=== PATIENT | female | born 1975 | race Caucasian/White ===

== ENCOUNTER 2024-05-21 16:20 | Emergency (ER) | payer OTHER, SELFPAY ==
[2024-05-21 16:35] VITALS: BP 155/118
[2024-05-21 16:49] LABS: % Basophils 1.2 % (0-2); % Eosinophils 0.6 % (0-6); % Immature Granulocytes 0.2 % (0-0.5); % Lymphocytes 37.1 % (20.5-51.1); % Monocytes 8.2 % (1.7-9.3); % Neutrophils 52.7 % (42.2-75.2); Absolute Basophils 0.1 10^3/uL (0-0.2); Absolute Lymphocytes 1.9 10^3/uL (1.2-3.4); Absolute Monocytes 0.4 10^3/uL (0.1-0.6); Absolute Neutrophils 2.6 10^3/uL (1.4-6.5); Hematocrit 38.9 % (37.0-47.0); Hemoglobin 13.5 g/dL (12.0-16.0); Mean Corp Hgb Conc. 34.7 g/dL (33.0-37.0); Mean Corpuscular Hgb 29.4 pg (27.0-31.0); Mean Corpuscular Volume 84.7 fL (81.0-99.0); Mean Platelet Volume 10.4 fL (7.4-10.4); Nucleated Red Blood Cells % 0 %; Platelet Count 266 10^3/uL (130-400); Red Blood Cell Count 4.59 10^6/uL (4.20-5.40); Red Cell Dist. Width 12.1 % (11.5-14.5)
[2024-05-21 17:02] LABS: ALT (SGPT) 15 U/L (0-35); AST (SGOT) 25 U/L (14-36); Albumin 5.2 g/dl (3.5-5.0); Alkaline Phosphatase 62 U/L (38-126); Blood Urea Nitrogen 16 mg/dl (7-17); Calcium 9.8 mg/dl (8.4-10.2); Carbon Dioxide 26 mmol/L (22-30); Chloride 102 mmol/L (98-107); Glucose 90 mg/dl (70-99); Potassium 3.9 mmol/L (3.5-5.1); Sodium 141 mmol/L (135-145); Total Bilirubin 0.5 mg/dl (0.2-1.3); eGFR > 60.00
[2024-05-21 18:33] VITALS: BP 157/98
[2024-05-21 18:34] VITALS: BP 157/98
[2024-05-21 18:42] VITALS: BMI 23.2
[2024-05-21 19:00] VITALS: BP 158/90
--- NOTE | 2024-05-21 19:46 | ED.GENMED ---
History of Present Illness
General
Chief Complaint: Blood Pressure Problem
Source: patient
Exam Limitations: none
Time Seen by Provider: 05/21/24 18:46
Nursing documentation reviewed up to this point in time: agreed with
History of Present Illness
History of Present Illness:
48-year-old female with history hx of anxiety, takes Effexor 160 mg daily, presents with headache, and 'my blood pressure was high last night' and mild numbness right side of face. She was here last evening for this but left due to lengthy wait. She
had pain behind the right eye last night when here but this has subsided. She slept well during the night. Has had frontal headache today, was 8/10, spoke with her Psychiatrist and was ordered Xanax 0.5 mg which she took at 3 p.m. and now headache
is 1/10. She denies change in vision, n/v.
She states someone from here called her today to check on her and suggested she come back for evaluation since she was not seen last night.
In further conversation she states she has been really stressed with her , a lot of arguing and she has been asking him to leave and he finally did last night to go to an extended stay hotel. She denies him abusing her, they just haven't been
getting along. She has 3 children ages 14 and twin 11 yo's. Her girlfriend is supportive and is staying with her children during this visit. She has no close family contacts. She states she feels much better with him out of the house.
Past History
Past History
ED Past Medical History: Hypercholesterolemia, Psychiatric and Other (back problems for which she sees Dr. Yates, IBS)
ED Past Surgical History:
Social History
Tobacco: Non-smoker
Alcohol: Occasional
Drug: None
Personal:
Living: with family
Review of Systems
Review of Systems
Allergies reviewed?: Yes
All Other Systems: ROS reviewed and negative except as documented in HPI and ROS
Constitutional: Reports fatigue; Denies fever
Respiratory: Denies trouble breathing
Cardiac: Denies chest pain or palpitations
Phy Exam
Physical Exam
Physical Exam:
GENERAL: No acute distress. A&Ox3.
CONSTITUTIONAL: Afebrile.
EYES: PERRL, conjunctivae normal
ENMT: moist mucus membranes, Pharynx nl
RESPIRATORY: Regular respirations, nonlabored, lungs clear.
CARDIOVASCULAR: Regular rate and rhythm, no murmurs, no rubs.
GI: Soft, nontender, normal BS
MUSCULOSKELETAL: Moves with ease. Well perfused.
SKIN: Warm, dry, pink
PSYCH: Normal mood and affect. Well kept, interactive and appropriate
NEUROLOGIC: Awake, alert and oriented. No focal neurological deficits
Course
Orders/Labs/Results
Orders:
Orders
05/21/24 16:42
CBC/With Diff [Complete Blood Count/With Diff] Urgent
Comprehensive Metabolic Panel Urgent
05/21/24 20:04
Electrocardiogram (*1) Urgent
Reason for Study: Fatigue / Weakness
EKG- Treatment ONCE
Abnormal Lab Results
05/21/24
16:42
Albumin 5.2 H g/dl
(3.5-5.0)
05/21/24 16:42
05/21/24 16:42
Vital Signs
Initial and Last Documented VS:
Initial Vital Signs
Temp Pulse Resp BP Pulse Ox
98.2 F 75 16 155/118 98
05/21/24 16:35 05/21/24 16:35 05/21/24 16:35 05/21/24 16:35 05/21/24 16:35
Last Documented Vital Signs
Temp Pulse Resp BP Pulse Ox
98.2 F 72 18 156/101 100
05/21/24 16:35 05/21/24 20:47 05/21/24 20:00 05/21/24 20:47 05/21/24 20:00
MDM/Problems Addressed
Differential Diagnosis Includes:
stress h/a, stress and anxiety.
MDM/Problems Addressed:
48-year-old female with history hx of anxiety, takes Effexor 160 mg daily, presents with headache, and 'my blood pressure was high last night' and mild numbness right side of face. She was here last evening for this but left due to lengthy wait. She
had pain behind the right eye last night when here but this has subsided. She slept well during the night. Has had frontal headache today, was 8/10, spoke with her Psychiatrist and was ordered Xanax 0.5 mg which she took at 3 p.m. and now headache
is 1/10. She denies change in vision, n/v.
She states someone from here called her today to check on her and suggested she come back for evaluation since she was not seen last night.
In further conversation she states she has been really stressed with her , a lot of arguing and she has been asking him to leave and he finally did last night to go to an extended stay hotel. She denies him abusing her, they just haven't been
getting along. She has 3 children ages 14 and twin 11 yo's. Her girlfriend is supportive and is staying with her children during this visit. She has no close family contacts. She states she feels much better with him out of the house.
No neuro deficits. No indication for head CT.
BP improving, no sign end organ damage, labs normal
EKG NSR
Hx and exam consistent with stress headache which she states is much improved.
*Critical Care Note
Total Time (30-74mins, 75-104mins- exclusive of procedures): Not Applicable
ED Attending Note
-
Portions of this chart may have been created with voice recognition software.� Occasional wrong word or��sound alike� substitutions may have occurred due to the inherent limitations of voice recognition software.
Discharge Plan
Departure
Patient Disposition: Home (Routine Discharge)
Date of Disposition: 05/21/24
Time of Disposition: 20:39
Patient with high blood pressure during this ER visit?: Yes
Condition: Good
Discharge Problem:
Stress headache, High blood pressure
Instructions: High Blood Pressure (DC), Tension Headache (DC), Stress
Prescriptions:
No Action
cetirizine 10 MG tablet
10 mg PO DAILY
venlafaxine [Effexor XR] 150 MG capsule,extended release 24hr
150 mg PO DAILY
lamotrigine [Lamictal XR] 50 MG tablet extended release 24hr
50 mg PO DAILY
multivitamin with folic acid [Tab-A-Gaby] 1 TABLET tablet
1 tab PO DAILY
pantoprazole 40 MG tablet,delayed release (DR/EC)
40 mg PO DAILY Qty: 10 0RF
sucralfate 1 GRAM tablet
1 g PO ACHS Qty: 40 0RF
Referrals:
Your, Doctor [Other] - As needed
NONE,* [Family Provider] -
Activity Restrictions/Additional Instructions:
As we discussed, your workup here today shows nothing worrisome.
Due to your family situation you are most likely having stress headaches, anxiety.
Now that you have alleviated some of the stress temporarily, your blood pressure should improve.
Have your blood pressure checked in the next 2 days to be sure it has normalized. Your last blood pressure was 158/90, normal blood pressure should be 120/70
Tylenol as needed for headache
Interventions
Interventions:
*Risk Screen - Suicide Last Done: 05/21/24 16:35
*General Assessment Last Done: 05/21/24 16:35
*Neglect/Abuse Screening Last Done: 05/21/24 16:35
ED- Fall Risk Assessment Last Done: 05/21/24 18:35
*ED COVID-19 Vaccine History Last Done: 05/21/24 18:35
*Nursing Disposition Last Done: 05/21/24 21:00
ED- Cardiac Assessment Last Done: 05/21/24 18:35
ED- Neurological Assessment Last Done: 05/21/24 18:35
ED- Pulmonary Assessment Last Done: 05/21/24 18:35
Discharge Date and Time
Discharge Date/Time: 05/21/24 21:01
Print Language: URDU
[2024-05-21 20:02] VITALS: BP 151/102
[2024-05-21 20:47] VITALS: BP 156/101
== END 2024-05-21 21:01 | disposition home or self-care (01) ==
LOC: EMR 16:20
PROVIDERS: Emergency Medicine; EMERGENCY PHYSICIAN Emergency Medicine
DX: G44.209 Tension-type headache, unspecified, not intractable (principal); R53.83 Other fatigue; R20.0 Anesthesia of skin; R03.0 Elevated blood-pressure reading, without diagnosis of hypertension; F41.9 Anxiety disorder, unspecified; Z63.0 Problems in relationship with spouse or partner; Z73.3 Stress, not elsewhere classified; E78.00 Pure hypercholesterolemia, unspecified; K58.9 Irritable bowel syndrome, unspecified; Z79.899 Other long term (current) drug therapy; Z88.2 Allergy status to sulfonamides; Z88.8 Allergy status to other drugs, medicaments and biological substances; Z91.048 Other nonmedicinal substance allergy status
CPT/HCPCS: 99284; 80053; 85025; 93005

== ENCOUNTER → 2024-08-11 09:40 | Outpatient (REF) | payer OTHER, SELFPAY | LOC: HWWDC 09:40 | PROVIDERS: ATTENDING PHYSICIAN Student in an Organized Health Care Education/Training Program; FAMILY PHYSICIAN Family Medicine | DX: Z12.31 Encounter for screening mammogram for malignant neoplasm of breast (principal) | CPT/HCPCS: 77063; 77067 ==

== ENCOUNTER 2024-09-03 22:03 | Emergency (ER) | payer OTHER, SELFPAY ==
[2024-09-03 22:05] VITALS: BP 145/94
--- NOTE | 2024-09-03 22:56 | ED.GENMED ---
History of Present Illness
<Missy Martel MD, Resident - Last Filed: 09/04/24 00:50>
General
Chief Complaint: Musculo-Skeletal Complaint
Source: patient
Exam Limitations: none
Time Seen by Provider: 09/03/24 22:09
History of Present Illness
History of Present Illness:
48yo F with PMH anxiety who presents from home to ED after mechanical fall and L foot injury. Coming down 1 stair in garage, she tripped over shoes that she couldn't see with the lights out. She rolled her foot and is now reporting pain in L side of
L foot. She has not been able to bear weight on it, her drove her to ED. She landed on her L buttocks, did not hit her head, no loss of consciousness. Otherwise in her usual state of health with no complaints. She took 2 advil prior to
arrival in ED.
Past History
<Missy Martel MD, Resident - Last Filed: 09/04/24 00:50>
Past History
ED Past Medical History: Hypercholesterolemia, Psychiatric and Other (back problems for which she sees Dr. Yates, IBS)
ED Past Surgical History:
Patient has exhibited threatening behavior?: No
Social History
Tobacco: Non-smoker
Alcohol: Occasional
Drug: None
Personal:
Living: with family
Employment: Employed ([employer], works from home)
Family History
Family History: Other (noncontributory)
Review of Systems
<Missy Martel MD, Resident - Last Filed: 09/04/24 00:50>
Review of Systems
Allergies reviewed?: Yes
Constitutional: Reports no symptoms
EENT: Reports no symptoms
Respiratory: Reports no symptoms; Denies cough or trouble breathing
Cardiac: Reports no symptoms; Denies chest pain, palpitations or syncope
ABD/GI: Reports no symptoms; Denies abdominal pain, nausea, vomiting, diarrhea, constipated, bloody stools or black stools
: Reports no symptoms; Denies dysuria or difficulty voiding
Musculoskeletal: Reports other (see HPI)
Skin: Reports no symptoms
Neurological: Reports no symptoms; Denies dizzy, headache, weakness or numbness
Endocrine: Reports no symptoms
Hematologic/Lymphatic: Reports no symptoms
Psychiatric: Reports no symptoms
Phy Exam
<Missy Martel MD, Resident - Last Filed: 09/04/24 00:50>
Physical Exam
Physical Exam:
L can filling and closing machine tender to palpation laterally; no lacerations, abrasions, ecchymosis, edema. R foot nontender.
5/5 strength bilateral lower extremities; dorsiflexion/plantar flexion of L foot slightly diminished 2/2 pain.
Well perfused, normal capillary refill distally
General Physical Exam
General Presentation: well appearing and no apparent distress
General age: appears stated age
General Skin: warm and dry
General Habitus: normal
General Mental: alert
General Hydration: appears well hydrated
Cardiovascular Exam
Cardiovascular Exam: no edema
Pulmonary Exam
Pulmonary Exam: no respiratory distress, no wheezing and no cough
Oxygen Status: room air
Neurological Exam
Neurological Exam: alert, no sensory deficits and speech normal
Psychiatric Exam
Psychiatric Exam: normal mood/affect
Course
<Missy Martel MD, Resident - Last Filed: 09/04/24 00:50>
Orders/Labs/Results
Orders:
Orders
09/03/24 22:08
Foot, Left 3 View [CR Foot - Left Min 3 Views] Urgent
Comment:
Reason For Exam: pain
09/03/24 22:55
Oxycodone/Acetaminophen [Percocet 5/325] 1 tablet PO NOW STA
Vital Signs
Initial and Last Documented VS:
Initial Vital Signs
Temp Pulse Resp BP Pulse Ox
97.9 F 87 16 145/94 100
09/03/24 22:05 09/03/24 22:05 09/03/24 22:05 09/03/24 22:05 09/03/24 22:05
Last Documented Vital Signs
Temp Pulse Resp BP Pulse Ox
97.9 F 87 16 145/94 100
09/03/24 22:05 09/03/24 22:05 09/03/24 22:05 09/03/24 22:05 09/03/24 22:05
<Mateo Nolan DO - Last Filed: 09/03/24 23:16>
Orders/Labs/Results
Orders:
Orders
09/03/24 22:08
Foot, Left 3 View [CR Foot - Left Min 3 Views] Urgent
Comment:
Reason For Exam: pain
09/03/24 22:55
Oxycodone/Acetaminophen [Percocet 5/325] 1 tablet PO NOW STA
Vital Signs
Initial and Last Documented VS:
Initial Vital Signs
Temp Pulse Resp BP Pulse Ox
97.9 F 87 16 145/94 100
09/03/24 22:05 09/03/24 22:05 09/03/24 22:05 09/03/24 22:05 09/03/24 22:05
Last Documented Vital Signs
Temp Pulse Resp BP Pulse Ox
97.9 F 87 16 145/94 100
09/03/24 22:05 09/03/24 22:05 09/03/24 22:05 09/03/24 22:05 09/03/24 22:05
<Missy Martel MD, Resident - Last Filed: 09/04/24 00:50>
MDM/Problems Addressed
Differential Diagnosis Includes:
fracture of L distal 5th metatarsal s/p mechanical fall
MDM/Problems Addressed:
48yo F presenting with L lateral foot pain s/p mechanical fall
Xray findings showed L cary fracture, consistent with physical exam findings
L boot placed, perfusion/sensation remains intact distally
Nonweightbearing until cleared by orthopedics-- referral info provided in discharge paperwork
Will give percocet to manage pain
Reviewed above with patient and her at bedside-- they are understanding and agreeable with plan
<Missy Martel MD, Resident - Last Filed: 09/04/24 00:50>
*Critical Care Note
Total Time (30-74mins, 75-104mins- exclusive of procedures): Not Applicable
ED Attending Note
<Missy Martel MD, Resident - Last Filed: 09/04/24 00:50>
-
Portions of this chart may have been created with voice recognition software.� Occasional wrong word or��sound alike� substitutions may have occurred due to the inherent limitations of voice recognition software.
<Mateo Nolan DO - Last Filed: 09/03/24 23:16>
ED Attending Note
Patient seen and examined by attending physician: Yes
I performed a history and physical exam of patient and discussed management with resident, I reviewed resident's note and agree with documented findings and plan of care.: Yes
ED Attending Note:
Pleasant 48-year-old female that presents with left foot pain after rolling her foot. Denies head injury or loss of consciousness. Patient was seen in conjunction with the resident. I have reviewed and agree with her history and treatment plan.
Her foot is tender on the lateral part of her midfoot above the fifth metatarsal. The x-ray shows a fracture likely avulsion generated at the base of the fifth metatarsal consistent with a Cary fracture. Plan is walking boot. Nonweightbearing
with crutches for the time being patient's family has a relationship with [facility] orthopedics and will follow-up with them.
Discharge Plan
Departure
Patient Disposition: Home (Routine Discharge)
Date of Disposition: 09/03/24
Time of Disposition: 23:27
Patient with high blood pressure during this ER visit?: Yes
Discharge Problem:
Fracture of metatarsal bone of left foot, Fall (on) (from) unspecified stairs and steps, initial encounter
Instructions: How to Use Crutches, Foot Fracture ED, BLOOD PRESSURE
Prescriptions:
New
oxycodone-acetaminophen [Percocet] 5-325 mg tablet
1 tab PO Q6HPRN PRN (Reason: pain) Qty: 10 0RF
No Action
cetirizine 10 MG tablet
10 mg PO DAILY
venlafaxine [Effexor XR] 150 MG capsule,extended release 24hr
150 mg PO DAILY
lamotrigine [Lamictal XR] 50 MG tablet extended release 24hr
50 mg PO DAILY
multivitamin with folic acid [Tab-A-Gaby] 1 TABLET tablet
1 tab PO DAILY
pantoprazole 40 MG tablet,delayed release (DR/EC)
40 mg PO DAILY Qty: 10 0RF
sucralfate 1 GRAM tablet
1 g PO ACHS Qty: 40 0RF
Referrals:
UNKNOWN - PT DOES,NOT KNOW [Family Provider] - (Call your Primary Care Provider to schedule follow up appointment after being seen in the Emergency Room.)
Ramón Flynn MD [Active] - Call in 1-3 days for appt (Call the Orthopedic office to schedule an appointment for your foot fracture.)
Activity Restrictions/Additional Instructions:
You came to the Emergency Room for left foot pain after a fall.
Your xray showed that you have a fracture of your foot (left 5th metatarsal bone).
Your foot was placed in a boot. You should continue to use this boot during the day (you can take it off for sleeping or bathing).
You should not bear weight on left foot until you see the orthopedic doctor. The contact information for their office is included in your discharge paperwork-- please call to make an appointment. Until then, please continue to use crutches and the
boot and keep weight off of your foot.
Return to the Emergency Room if you have worsening symptoms, pain that is not controlled with medication/supportive measures at home, or for new concerns.
Interventions
Interventions:
*Risk Screen - Suicide Last Done: 09/03/24 23:02
*General Assessment Last Done: 09/03/24 22:05
*Neglect/Abuse Screening Last Done: 09/03/24 23:02
ED- Fall Risk Assessment Last Done: 09/03/24 23:02
*ED COVID-19 Vaccine History Last Done: 09/03/24 22:05
*Nursing Disposition Last Done: 09/03/24 23:40
ED-Musculoskeletal Assessment Last Done: 09/03/24 23:03
Discharge Date and Time
Discharge Date/Time: 09/03/24 23:41
Print Language: OMANI
[2024-09-03] MEDS: PERCOCET 5/325 1 TABLET PO (23:00)
[2024-09-03 23:02] VITALS: BMI 24.1
== END 2024-09-03 23:41 | disposition home or self-care (01) ==
LOC: EMR 22:03
PROVIDERS: EMERGENCY PHYSICIAN Student in an Organized Health Care Education/Training Program
DX: S92.352A Displaced fracture of fifth metatarsal bone, left foot, initial encounter for closed fracture (principal); W10.9XXA Fall (on) (from) unspecified stairs and steps, initial encounter; E78.00 Pure hypercholesterolemia, unspecified
CPT/HCPCS: 99283; 73630